=== PATIENT | female | born 1985 | race Caucasian/White ===

== ENCOUNTER 2018-04-04 17:35 | Emergency (ER) | payer OTHER ==
--- NOTE | 2018-04-04 17:44 | UC ---
Respiratory Complaint HPI - HPI Summary HPI Summary: 32 yo female presents with sinus pain/pressure/congestion and dry cough for the last 1 week. She has not taken anything OTC. Denies fever, chills, sore throat, SOB, chest pain, abdominal pain, n/v. She is still smoking daily. - History of Current Complaint Hx Obtained From: Patient Hx Last Menstrual Period: started 03/14/15 Onset/Duration: Gradual Onset Timing: Constant Severity Initially: Mild Severity Currently: Mild Pain Intensity: 5 Pain Scale Used: 0-10 Numeric Character: Cough: Nonproductive <Chema Castro - Last Filed: 04/04/18 17:56> <Wayne Ibrahim - Last Filed: 04/04/18 18:13> - History of Current Complaint Stated Complaint: COUGH Time Seen by Provider: 04/04/18 17:40 - Allergies/Home Medications Allergies/Adverse Reactions: Allergies Allergy/AdvReac Type Severity Reaction Status Date / Time bee stings Allergy Severe Anaphylatic Uncoded 04/04/18 17:46 Shock Home Medications: Home Medications Desvenlafaxine (NF) [Pristiq (NF)] 75 mg PO DAILY 04/04/18 [History Confirmed ] Vit B12/Pyridoxine/Thiamine [Apatate Liquid] 500 mg PO DAILY 04/04/18 [History Confirmed 04/04/18] PMH/Surg Hx/FS Hx/Imm Hx Previously Healthy: Yes Psychological History: Depression - Surgical History Surgical History: None - Family History Known Family History: Positive: Cardiac Disease, Other - cancer Negative: Diabetes - Social History Occupation: Employed Full-time Lives: With Family Alcohol Use: Occasionally Substance Use Type: None Smoking Status (MU): Light Every Day Tobacco Smoker Type: Cigarettes Amount Used/How Often: 2 CIG/DAY <Chema Castro - Last Filed: 04/04/18 17:56> Review of Systems Constitutional: Negative Skin: Negative Eyes: Negative ENT: Ear Ache, Nasal Discharge, Sinus Congestion, Sinus Pain/Tenderness Respiratory: Cough Cardiovascular: Negative Gastrointestinal: Negative Neurovascular: Negative Neurological: Negative Psychological: Negative All Other Systems Reviewed And Are Negative: Yes <Chema Castro - Last Filed: 04/04/18 17:56> Physical Exam - Summary Physical Exam Summary: GENERAL: NAD. WDWN. Appears fatigued SKIN: No rashes, sores, lesions, or open wounds. HEENT: Head: AT/NC Eyes: EOM intact. Conjunctiva clear without inflammation or discharge. Ears: Hearing grossly normal. TMs intact, no bulging, erythema, or edema. Nose: Nasal mucosa mildly swollen and erythematous with yellow/ clear discharge. TTP maxillary and frontal sinus. Throat: Posterior oropharynx without exudates, erythema, or tonsillar enlargement. Uvula midline. NECK: Supple. Nontender. No lymphadenopathy. CHEST: CTAB. No r/r/w. No accessory muscle use. Breathing comfortably and in no distress. CV: RRR. Without m/r/g. Pulses intact. Brisk cap refill. NEURO: Alert. CN II-XII grossly intact. PSYCH: Age appropriate behavior. Triage Information Reviewed: Yes Vital Signs: Vital Signs: Temp Pulse Resp BP Pulse Ox 97.8 F 74 16 117/78 99 04/04/18 17:41 04/04/18 17:41 04/04/18 17:41 04/04/18 17:41 04/04/18 17:41 <Chema Castro - Last Filed: 04/04/18 17:56> Vital Signs: Initial Vital Signs Temp 97.8 F 04/04/18 17:41 Pulse 74 04/04/18 17:41 Resp 16 04/04/18 17:41 BP 117/78 04/04/18 17:41 Pulse Ox 99 04/04/18 17:41 <Wayne Ibrahim - Last Filed: 04/04/18 18:13> Respiratory Course/Dx - Course Course Of Treatment: Sinusitis - Differential Dx/Diagnosis Provider Diagnoses: sinusitis <Chema Castro - Last Filed: 04/04/18 17:56> Discharge - Sign-Out/Discharge Documenting (check all that apply): Discharge/Admit/Transfer - Billing Disposition and Condition Condition: STABLE Disposition: Home <Chema Castro Last Filed: 04/04/18 17:56> - Billing Disposition and Condition Condition: STABLE Disposition: Home <Wayne Ibrahim - Last Filed: 04/04/18 18:13> - Discharge Plan Condition: Stable Disposition: HOME Prescriptions: Amoxicillin PO (*) [Amoxicillin 500 MG CAP*] 500 mg PO Q12H #20 cap Patient Education Materials: Sinusitis (ED) Referrals: Edmundo Rooney MD [Primary Care Provider] - Additional Instructions: If you develop a fever, shortness of breath, chest pain, new or worsening symptoms - please call your PCP or go to the ED. Per institutional requirements, I have reviewed the chart, however, I was not consulted specifically or made aware of this patient by the above midlevel provider. I did not personally evaluate, interact with , or disposition this patient.
[2018-04-04 17:45] VITALS: BP 117/78
== END 2018-04-04 18:07 | disposition home or self-care (01) ==
LOC: UCEAST 17:35
DX: J32.9 Chronic sinusitis, unspecified (principal); F17.210 Nicotine dependence, cigarettes, uncomplicated
CPT/HCPCS: 99212; G0463

== ENCOUNTER 2019-02-21 21:16 | Emergency (ER) | payer OTHER ==
--- OUTSIDE RECORDS SUMMARY | 2019-02-21 21:21 | XMS REPORT | Continuity of Care Document ---
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 Blood Count 4.69 10^6/uL 4.0-5.4 Hemoglobin 14.1 g/dL 12.0-16.0 Hematocrit 41 % 35-47 Mean Corpuscular Volume 87 fL 80-97 Mean Corpuscular Hemoglobin 30 pg 27-31 Mean Corpuscular HGB Conc 35 g/dL 31-36 Red Cell Distribution Width 13 % 10.5-15 Platelet Count 226 10^3/uL 150-450 Mean Platelet Volume 10 um3 7.4-10.4 Abs Neutrophils 3.0 10^3/uL 1.5-7.7 Abs Lymphocytes 1.3 10^3/uL 1.0-4.8 Abs Monocytes 0.5 10^3/uL 0-0.8 Abs Eosinophils 0.1 10^3/uL 0-0.6 Abs Basophils 0 10^3/uL 0-0.2 Abs Nucleated RBC 0 10^3/uL Neutrophil % 66 % 38-83 Lymphocytes % 28 % 25-47 Monocytes % 6 % 0-13 RBC Morphology Normal Normal Laboratory test 12/26/2013 [facility] Blood Culture (SEE NOTE) [address] [place] [address] [phone] CBC Auto Diff 12/25/2013 [facility] White Blood 14.8 High 4.8- [address] Count 10^3/uL .8 [place] [address] [phone] Red Blood Count 5.05 10^6/uL 4.0-5.4 Hemoglobin 14.6 g/dL 12.0-16.0 Hematocrit 44 % 35-47 Mean Corpuscular Volume 87 fL 80-97 Mean Corpuscular Hemoglobin 29 pg 27-31 Mean Corpuscular HGB Conc 33 g/dL 31-36 Red Cell Distribution Width 13 % 10.5-15 Platelet Count 270 10^3/uL 150-450 Mean Platelet Volume 10 um3 7.4-10.4 Abs Neutrophils 13.7 10^3/uL High 1.5-7.7 Abs Lymphocytes 0.5 10^3/uL Low 1.0-4.8 Abs Monocytes 0.5 10^3/uL 0-0.8 Abs Eosinophils 0 10^3/uL 0-0.6 Abs Basophils 0.1 10^3/uL 0-0.2 Abs Nucleated RBC 0.01 10^3/uL Granulocyte % 92.4 % High 38-83 Lymphocyte % 3.6 % Low 25-47 Monocyte % 3.5 % 1-9 Eosinophil % 0 % 0-6 Basophil % 0.5 % 0-2 Nucleated Red Blood Cells % 0 Comp Metabolic Panel 12/25/2013 [facility] Sodium 133 mmol/L 133-[address] [place] [address] [phone] Potassium 4.8 mmol/L 3.7-5.6 Chloride 101 mmol/L 101-111 Co2 Carbon Dioxide 25 mmol/L 22-32 Anion Gap 7 mmol/L 2-11 Glucose 113 mg/dL High 70-100 Blood Urea Nitrogen 17 mg/dL 6-24 Creatinine 0.81 mg/dL 0.51-0.95 BUN/Creatinine Ratio 21.0 High 8-20 Calcium 9.5 mg/dL 8.6-10.3 Total Protein 6.7 g/dL 6.4-8.9 Albumin 4.6 g/dL 3.2-5.2 Globulin 2.1 g/dL 2-4 Albumin/Globulin Ratio 2.2 1-3 Total Bilirubin 0.90 mg/dL 0.2-1.0 Alkaline Phosphatase 51 U/L 34-104 Alt 10 U/L 7-52 Ast 14 U/L 13-39 Egfr Non- 83.6 >60 Egfr 107.5 >60 17 CBC With 02/14/2013 [facility] White Blood 8.9 10^3/uL 4.8- 10.8 Manual Diff [address] [place] [address] [phone] Red Blood Count 4.71 10^6/uL 4.0-5.4 Hemoglobin 13.9 g/dL 12.0-16.0 Hematocrit 42 % 35-47 Mean Corpuscular Volume 90 fL 80-97 Mean Corpuscular Hemoglobin 30 pg 27-31 Mean Corpuscular HGB Conc 33 g/dL 31-36 Red Cell Distribution Width 13 % 10.5-15 Platelet Count 291 10^3/uL 150-450 Platelet Morphology Large Mean Platelet Volume 10 um3 7.4-10.4 Abs Neutrophils 5.5 10^3/uL 1.5-7.7 Abs Lymphocytes 2.7 10^3/uL 1.0-4.8 Abs Monocytes 0.5 10^3/uL 0-0.8 Abs Eosinophils 0.1 10^3/uL 0-0.6 Abs Basophils 0.1 10^3/uL 0-0.2 Abs Nucleated RBC 0 10^3/uL Neutrophil % 49 % 38-83 Band % 2 % 0-8 Lymphocytes % 44 % 25-47 Monocytes % 3 % 0-13 Eosinophils % 1 % 0-6 Reactive Lymph % 1 % 0-6 RBC Morphology Normal Normal Laboratory test 08/19/2012 [facility] C Reactive 20.5 mg/dL High Less Than finding [address] Protein 0.5 [place] [address] [phone] Comp Metabolic 08/19/2012 [facility] Sodium 132 mmol/L Low 133 -[address] [place] [address] [phone] Potassium 2.9 mmol/L Low 3.5-5.0 Chloride 99 mmol/L Low 101-111 Co2 Carbon Dioxide 23.0 mmol/L 22-32 Anion Gap 10.0 mmol/L 2-11 Glucose 101 mg/dL High 70-100 Blood Urea Nitrogen 7 mg/dL 6-24 Creatinine 0.80 mg/dL 0.50-1.40 BUN/Creatinine Ratio 8.8 8-20 Calcium 8.9 mg/dL 8.1-9.9 Total Protein 6.5 GM/DL 6.2-8.1 Albumin 3.5 GM/DL Low 3.6-5.4 Globulin 3.0 GM/DL 2-4 Albumin/Globulin Ratio 1.2 1-3 Total Bilirubin 0.5 mg/dL 0.1-1.0 18 Alkaline Phosphatase 49 U/L 30-110 Alt 21 U/L 14-54 Ast 25 U/L 12-42 Egfr Non- 85.4 >60 Egfr 109.8 >60 19 Urinalysis 08/19/2012 [facility] Urine Color Yellow [address] [place] [address] [phone] Urine Appearance Clear Urine Specific [place] 1.015 1.010-1.030 Urine Esterase Negative Negative Urine Nitrate Negative Negative Urine Urobilinogen Negative Negative Urine Protein Trace Abnormal Negative Urine pH 6.0 5-9 Urine Blood Negative Negative Urine Ketones 2+ Abnormal Negative Urine Bilirubin Negative Negative Urine Glucose Negative Negative CBC Auto Diff 08/19/2012 [facility] White Blood 6.0 10^3/uL 4.8-10.[address] [place] [address] [phone] Red Blood Count 4.76 10^6/uL 4.0-5.4 Hemoglobin 14.1 g/dL 12.0-16.0 Hematocrit 41 % 35-47 Mean Corpuscular Volume 87 fL 80-97 Mean Corpuscular Hemoglobin 30 pg 27-31 Mean Corpuscular HGB Conc 34 g/dL 31-36 Red Cell Distribution Width 13 % 10.5-15 Platelet Count 164 10^3/uL 150-450 Mean Platelet Volume 10 um3 7.4-10.4 Abs Neutrophils 5.0 10^3/uL 1.5-7.7 Abs Lymphocytes 0.7 10^3/uL Low 1.0-4.8 Abs Monocytes 0.4 10^3/uL 0-0.8 Abs Eosinophils 0 10^3/uL 0-0.6 Abs Basophils 0 10^3/uL 0-0.2 Abs Nucleated RBC 0.01 10^3/uL Granulocyte % 81.9 % 38-83 Lymphocyte % 11.5 % Low 25-47 Monocyte % 6.1 % 1-9 Eosinophil % 0.3 % 0-6 Basophil % 0.2 % 0-2 Nucleated Red Blood Cells % 0.1 Comp Metabolic Panel 08/18/2012 [facility] Sodium 134 mmol/L 133-[address] [place] [address] [phone] Potassium 4.4 mmol/L 3.5-5.0 Chloride 100 mmol/L Low 101-111 Co2 Carbon Dioxide 27.0 mmol/L 22-32 Anion Gap 7.0 mmol/L 2-11 Glucose 101 mg/dL High 70-100 Blood Urea Nitrogen 7 mg/dL 6-24 Creatinine 0.70 mg/dL 0.50-1.40 BUN/Creatinine Ratio 10.0 8-20 Calcium 9.2 mg/dL 8.1-9.9 Total Protein 6.6 GM/DL 6.2-8.1 Albumin 3.8 GM/DL 3.6-5.4 Globulin 2.8 GM/DL 2-4 Albumin/Globulin Ratio 1.4 1-3 Total Bilirubin 0.6 mg/dL 0.1-1.0 20 Alkaline Phosphatase 50 U/L 30-110 Alt 18 U/L 14-54 Ast 19 U/L 12-42 Egfr Non- 99.6 >60 Egfr 128.1 >60 21 Laboratory test 08/18/2012 [facility] C Reactive 13.2 mg/dL High Less Than finding [address] Protein 0.5 [place] [address] [phone] CBC Auto Diff 08/18/2012 [facility] White Blood 7.1 4.8-10.8 DRIVE Count 10^3/[place] [address] [phone] Red Blood Count 4.62 10^6/uL 4.0-5.4 Hemoglobin 13.8 g/dL 12.0-16.0 Hematocrit 41 % 35-47 Mean Corpuscular Volume 88 fL 80-97 Mean Corpuscular Hemoglobin 30 pg 27-31 Mean Corpuscular HGB Conc 34 g/dL 31-36 Red Cell Distribution Width 12 % 10.5-15 Platelet Count 182 10^3/uL 150-450 Mean Platelet Volume 11 um3 High 7.4-10.4 Abs Neutrophils 5.8 10^3/uL 1.5-7.7 Abs Lymphocytes 0.9 10^3/uL Low 1.0-4.8 Abs Monocytes 0.4 10^3/uL 0-0.8 Abs Eosinophils 0 10^3/uL 0-0.6 Abs Basophils 0.1 10^3/uL 0-0.2 Abs Nucleated RBC 0 10^3/uL Granulocyte % 80.6 % 38-83 Lymphocyte % 12.1 % Low 25-47 Monocyte % 5.9 % 1-9 Eosinophil % 0.1 % 0-6 Basophil % 1.3 % 0-2 Nucleated Red Blood Cells % 0.1 Laboratory test 04/12/2012 [facility] Glucose 65 mg/dL Low 70- 100 finding [address] [place] [address] [phone] Lipid Profile 04/12/2012 [facility] Triglyceride 80 mg/dL 40- 200 (Trig/Chol/HDL) [address] [place] [address] [phone] Cholesterol 147 mg/dL Less Than 200 22 High Density Lipoprotein 38 mg/dL Low 40-60 23 Low Density Lipoprotein 93 mg/dL Less Than 100 24 Cholesterol/HDL Ratio 3.87 AVERAGE 1-4.44 Laboratory test 12/23/2011 [facility] Rapid < SEE [address] [facility] Strep A NOTE> [place] [address] [phone] 1 SEE RESULT BELOW Name: FREDY QUINTEROSTERA Skelton : [address]: Leana Nichols MD Acct: [id number] Unit: [id number] AGE: 33 Location: [facility] Re06/14/18 SEX: F Status: REG REF SPEC: [id number] CEDRIC: 06/14/18-1146 [facility] DR: Leana Nichols MD REQ: [id number] RECD: 06/14/18 STATUS: COMP _ SOURCE: VAGINAL SPDESC: ORDERED: Cheryl,Yeast DNA COMMENTS: [id number] Would you like to order Trichomonas Vaginalis testing? Y Procedure Result Reported Site Gardnerella/Yeast: Vaginal DNA Final 06/15/18- 1347 ML Organism 1 POSITIVE GARDNERELLA Organism 2 Negative Naya The presence of G. vaginalis, although suggestive, is not diagnostic for bacterial vaginosis. Results should be interpreted in conjuction with other clinical and laboratory data available. Women with vaginal discharge should be evaluated for risk factors of cervicitis and pelvic inflammatory disease, toxic shock syndrome (S.aureus), and if present, evaluated for organisms not included in this assay such as N. gonorrhoeae, C. trachomatis, Mobiluncus, Mycoplasma and/or Prevotella. Mixed infections may occur. The performance of this test on patient specimens collected during or immediately after antimicrobial therapy is unknown. The presence or absence of Naya species, or G. vaginalis cannot be used as a test for therapeutic success or failure. * ML - Main Lab . END OF REPORT DEPARTMENT OF PATHOLOGY, [address] [place] [address] Frederick Schaefer M.D. Director [facility] # [id number] 2 [id number] GC/Chlamydia Source?: Endocervical Trichomonas Source: Endocervical 3 Desirable: <150 Borderline High: 150-199 High: 200-499 Very High: >500 4 Desirable: <200 Borderline High: 200-239 High: >239 5 Low: <40 Desirable: 40-60 High: >60 6 Desirable: <100 Near Optimal: 100-129 Borderline High: 130-159 High: 160-189 Very High: >189 7 It is recognized that currently available assays for the detection of antibodies to HIV-1 and/or HIV-2 may not detect all infected individuals. HIV antibodies may be undetectable in some stages of the infection and in some clinical conditions. The performance of this assay has not been established for populations of infants or children. Assayed by Chemiluminescence Microparticle Immunoassay on the Siemens Advia Centaur CP. Values obtained with different methods or kits cannot be used interchangeably.The diagnostic specificity of the ADVIA Centaur 1/O/2 Enhanced assay in the low risk population was 99.90% (6052/6058) with a 95% confidence interval of 99.78 to 99.96%. 8 Normal Range 180 to 914 Indeterminate Range 145 to 180 Deficient Range <145 9 Because ethnic data is not always readily available, this report includes an eGFR for both -Americans and non- Americans. The National Kidney Disease Education Program (NKDEP) does not endorse the use of the MDRD equation for patients that are not between the ages of 18 and 70, are , have extremes of body size, muscle mass, or nutritional status, or are non- or non-. According to the National Kidney Foundation, irrespective of diagnosis, the stage of the disease is based on the level of kidney function: Stage Description GFR(mL/min/1.73 m(2)) 1 Kidney damage with normal or decreased GFR 90 2 Kidney damage with mild decrease in GFR 60-89 3 Moderate decrease in GFR 30-59 4 Severe decrease in GFR 15-29 5 Kidney failure <15 (or dialysis) 10 Acute inflammation: >10.00 11 Because ethnic data is not always readily available, this report includes an eGFR for both -Americans and non- Americans. The National Kidney Disease Education Program (NKDEP) does not endorse the use of the MDRD equation for patients that are not between the ages of 18 and 70, are , have extremes of body size, muscle mass, or nutritional status, or are non- or non-. According to the National Kidney Foundation, irrespective of diagnosis, the stage of the disease is based on the level of kidney function: Stage Description GFR(mL/min/1.73 m(2)) 1 Kidney damage with normal or decreased GFR 90 2 Kidney damage with mild decrease in GFR 60-89 3 Moderate decrease in GFR 30-59 4 Severe decrease in GFR 15-29 5 Kidney failure <15 (or dialysis) 12 SEE RESULT BELOW Name: JAZZ QUINTEROS : [address]: Den Rooney MD Acct: [id number] Unit: [id number] AGE: 31 Location: LAB Re07/01/16 SEX: F Status: REG REF SPEC: [id number] CEDRIC: 07/01/[address]: Edmundo Rooney MD REQ: [id number] RECD: 07/01/16 STATUS: COMP _ SOURCE: STOOL SPDESC: ORDERED: CAnders denson PCR, Stool Culture, Fecal Lactoferr, Giardia Antigen Procedure Result Reported Site Stool Culture Final 07/03/16- 1249 ML Organism 1 CAMPYLOBACTER JEJUNI Result No additional pathogens isolated Testing for Salmonella, Shigella, Aeromonas, Plesiomonas, Yersinia and Campylobacter are included in a Stool Culture. Vibrio spp not routinely tested for in a stool culture. If testing is desired, please request specifically when placing test order. Sensitivities not routinely performed on stool isolates, as antibiotics may prolong the carriage rate of bacteria. Please contact the microbiology lab if sensitivities are required. Stool Specimen Description Final 07/02/16- 0857 ML Stool Color Brown Stool Form Nonformed Stool Consistency Liquid Shiga Toxin 1 2 Final 07/02/16- 1243 ML Organism 1 Negative Shiga Toxin 1 2 CONTINUED ON NEXT PAGE * ML=Testing performed at [facility] Lab DEPARTMENT OF PATHOLOGY, [address] [place] [address] Frederick Schaefer M.D. Director [facility] # [id number] Patient: JAZZ QUINTEROS [id number] (Continued) Specimen: [id number] Collected: 07/01/16 Received: 07/01/16-1056 (Continued) Procedure Result Reported Site Shiga Toxin 1 2 Final (continued) 07/02/16- 1243 Immunochromatographic Assay C. difficile PCR Final 07/01/16- 1150 ML Organism 1 027 Presumptive NEGATIVE Organism 2 Toxigenic C.diff NEGATIVE Fecal Lactoferrin (Stool WBC) Final 07/01/16- 1135 ML Fecal Lactoferrin Positive by Immunoassay TEST LIMITATIONS: Assay detects elevated levels of lactoferrin released from fecal leukocytes as a marker of intestinal inflammation. The test may not be appropriate in immunocompromised persons. Fecal samples from breast fed infants should not be used with this assay. Giardia Antigen Screen Final 07/01/16- 1143 ML Organism 1 Negative Giardia Giardia antigen testing performed by enzyme immunoassay. If patient is immunocompromised or has traveled to or is from a developing country, a full ova and parasite exam with microscopic (OPMIC) is recommended. All samples will be held one month in case full ova and parasite testing is requested. Contact the Microbiology Department at [phone]. * ML - MAIN LAB ([facility]) . END OF REPORT * ML=Testing performed at Main Lab DEPARTMENT OF PATHOLOGY, [address] [place] [address] Frederick Schaefer M.D. Director [facility] # [id number] 13 SEE RESULT BELOW Name: JAZZ QUINTEROS : [address]: Den Rooney MD Acct: [id number] Unit: [id number] AGE: 31 Location: LAB Re07/01/16 SEX: F Status: REG REF SPEC: [id number] CEDRIC: 07/01/[address]: Edmundo Rooney MD REQ: [id number] RECD: 07/01/16 STATUS: RES _ SOURCE: STOOL SPDESC: ORDERED: Leola denson PCR, Stool Culture, Fecal Lactoferr, Giardia Antigen Procedure Result Reported Site Stool Culture PENDING Stool Specimen Description PENDING Shiga Toxin 1 2 PENDING C. difficile PCR PENDING Fecal Lactoferrin (Stool WBC) Final 07/01/16- 1135 ML Fecal Lactoferrin Positive by Immunoassay TEST LIMITATIONS: Assay detects elevated levels of lactoferrin released from fecal leukocytes as a marker of intestinal inflammation. The test may not be appropriate in immunocompromised persons. Fecal samples from breast fed infants should not be used with this assay. Giardia Antigen Screen Final 07/01/16- 1143 ML Organism 1 Negative Giardia CONTINUED ON NEXT PAGE * ML=Testing performed at Main Lab DEPARTMENT OF PATHOLOGY, [address] [place] [address] Frederick Schaefer M.D. Director [facility] # [id number] Patient: JAZZ QUINTEROS [id number] (Continued) Specimen: [id number] Collected: 07/01/16 Received: 07/01/16 (Continued) Procedure Result Reported Site Giardia Antigen Screen Final (continued) 07/01/16- 1143 Giardia antigen testing performed by enzyme immunoassay. If patient is immunocompromised or has traveled to or is from a developing country, a full ova and parasite exam with microscopic (OPMIC) is recommended. All samples will be held one month in case full ova and parasite testing is requested. Contact the Microbiology Department at [phone]. * ML - MAIN LAB ([facility]) . END OF REPORT * ML=Testing performed at Main Lab DEPARTMENT OF PATHOLOGY, [address] [place] [address] Frederick Schaefer M.D. Director [facility] # [id number] 14 SEE RESULT BELOW Name: JAZZ QUINTEROS : [address]: Raman Walden III, MD Acct: [id number] Unit: [id number] AGE: 30 Location: [facility] Re01/29/16 SEX: F Status: REG REF SPEC: [id number] CEDRIC: 01/29/16-1753 [facility] DR: Raman Walden III, MD REQ: [id number] RECD: 01/30/16114 STATUS: COMP _ SOURCE: THROAT SPDESC: ORDERED: Throat Culture Procedure Result Reported Site Throat Culture Final 02/01/16- 1021 ML Organism 1 NORMAL LUPE Quantity 3+ * ML - MAIN LAB ([facility]) . END OF REPORT * ML=Testing performed at Main Lab DEPARTMENT OF PATHOLOGY, [address] [place] [address] Frederick Schaefer M.D. Director [facility] # [id number] 15 RUN DATE: 03/14/14 [facility] LAB LIVE PAGE 1 RUN TIME: [address] [place] [address] Specimen Inquiry Name: JAZZ QUINTEROS : [address]: Azra Boyer MD Acct: [id number] Unit: [id number] AGE: 28 Location: [facility] Re03/11/14 SEX: F Status: DEP ER SPEC: [id number] CEDRIC: 03/11/14-2099 [facility] [address]: Azra Boyer MD REQ: [id number] RECD: 03/12/14123 STATUS: ARNOLDO ALVARENGA DR: [facility] Edmundo Rooney MD _ SOURCE: URINE SPDESC: ORDERED: Urine Culture Procedure Result Verified Site Urine Culture Final 03/14/14- 0903 ML Organism 1 ESCHERICHIA COLI [place] Count >100,000 (Many) CFU/ML 1. ESCHERICHIA COLI M.I.C. RX --------- ------ Ampicillin >=32 R Cefazolin <=4 S Cefepime <=1 S Ceftriaxone <=1 S Ciprofloxacin <=0.25 S Gentamicin <=1 S Levofloxacin 1 S Meropenem <=0.25 S Nitrofurantoin 32 S Tetracycline >=16 R Pipercillin/Tazobactam <=4 S Trimethoprim/Sulfamethoxazole >=320 R Amoxicillin/Clavulanic Acid 8 S Aztreonam <=1 S Contact the Microbiology Department for any additional antibiotic reporting. END OF REPORT * ML=Testing performed at Main Lab DEPARTMENT OF PATHOLOGY, [facility] [employer] [place], [place] [address] Frederick Schaefer M.D. Director [facility] # [id number] 16 RUN DATE: 12/31/13 [facility] LAB LIVE PAGE 1 RUN TIME: 1012 [facility] [employer] [place], [place] [address] Specimen Inquiry Name: JAZZ QUINTEROS : [address]: Den Rooney MD Acct: [id number] Unit: [id number] AGE: 28 Location: [facility] Re12/26/13 SEX: F Status: REG REF SPEC: [id number] CEDRIC: 12/26/[address]: Edmundo Rooney MD REQ: [id number] RECD: 12/26/13 STATUS: COMP _ SOURCE: BLOOD,VENO SPDESC: ORDERED: Blood Cult QUERIES: Med[facility] Number [id number] Procedure Result Verified Site Aerobic Culture Bottle Final 12/31/13- 1012 ML No Growth Day 5 Anaerobic Culture Bottle Final 12/31/13- 1012 ML No Growth Day 5 END OF REPORT * ML=Testing performed at Main Lab DEPARTMENT OF PATHOLOGY, [address] [place] [address] Frederick Schaefer M.D. Director [facility] Permit #[id number] 17 Because ethnic data is not always readily available, this report includes an eGFR for both -Americans and non- Americans. The National Kidney Disease Education Program (NKDEP) does not endorse the use of the MDRD equation for patients that are not between the ages of 18 and 70, are , have extremes of body size, muscle mass, or nutritional status, or are non- or non-. According to the National Kidney Foundation, irrespective of diagnosis, the stage of the disease is based on the level of kidney function: Stage Description GFR(mL/min/1.73 m(2)) 1 Kidney damage with normal or decreased GFR 90 2 Kidney damage with mild decrease in GFR 60-89 3 Moderate decrease in GFR 30-59 4 Severe decrease in GFR 15-29 5 Kidney failure <15 (or dialysis) 18 A metabolite of Naproxen, O-desmethylnaproxen, has been shown to interfere with the [place] method for measuring total bilirubin. Samples from patients who have taken Naproxen have shown spurious elevation in total bilirubin levels. 19 Because ethnic data is not always readily available, this report includes an eGFR for both -Americans and non- Americans. The National Kidney Disease Education Program (NKDEP) does not endorse the use of the MDRD equation for patients that are not between the ages of 18 and 70, are , have extremes of body size, muscle mass, or nutritional status, or are non- or non-. According to the National Kidney Foundation, irrespective of diagnosis, the stage of the disease is based on the level of kidney function: Stage Description GFR(mL/min/1.73 m(2)) 1 Kidney damage with normal or decreased GFR 90 2 Kidney damage with mild decrease in GFR 60-89 3 Moderate decrease in GFR 30-59 4 Severe decrease in GFR 15-29 5 Kidney failure <15 (or dialysis) 20 A metabolite of Naproxen, O-desmethylnaproxen, has been shown to interfere with the [place] method for measuring total bilirubin. Samples from patients who have taken Naproxen have shown spurious elevation in total bilirubin levels. 21 Because ethnic data is not always readily available, this report includes an eGFR for both -Americans and non- Americans. The National Kidney Disease Education Program (NKDEP) does not endorse the use of the MDRD equation for patients that are not between the ages of 18 and 70, are , have extremes of body size, muscle mass, or nutritional status, or are non- or non-. According to the National Kidney Foundation, irrespective of diagnosis, the stage of the disease is based on the level of kidney function: Stage Description GFR(mL/min/1.73 m(2)) 1 Kidney damage with normal or decreased GFR 90 2 Kidney damage with mild decrease in GFR 60-89 3 Moderate decrease in GFR 30-59 4 Severe decrease in GFR 15-29 5 Kidney failure <15 (or dialysis) 22 CHOLESTEROL INTERPRETATION: Desirable: Less than 200 MG/DL Borderline-High Risk: 200-239 MG/DL High-Risk: 240 MG/DL and over 23 HDL INTERPRETATION: Undesirable: High Risk: Less than 40 MG/DL Desirable: Low Risk: Greater than 60 MG/DL 24 LDL INTERPRETATION: Low Risk Optimal Level: LDL Less than 100 MG/DL Near or Above Optimal: LDL 100-129 MG/DL Borderline High Risk: LDL 130-159 MG/DL High Risk: LDL 160-189 MG/DL Very High Risk: LDL Greater than 189 MG/DL 25 RUN DATE: 12/25/11 [facility] NMI LIVE PAGE 1 RUN TIME: 1036 Specimen Inquiry RUN USER: INTERFACE Name: JAZZ QUINTEROS Costa Status: REG REF Re12/23/11 Age/Sex: 26/F Unit#: [id number] Location: [facility]. : [birth year] SPEC #: [id number] CEDRIC: 12/23/11 STATUS: ARNOLDO REQ #: [id number] RECD: 12/24/[address] [facility] [address]: Molly BEGUM,Jordyn Galvez SOURCE: THROAT ENTR: 12/24/11-[address]: BARBARAC: ORDERED: RAPID STREP A, THROAT CULTURE QUERIES: [facility] REQUISITION # [id number] ACT WKST: B 12/25/11 #1 Procedure Result Verified Site > RAPID STREP A Final 12/24/11- 1105 ML RAPID STREP NEGATIVE FOR GROUP A STREP BY ENZYME IMMUNOASSAY The furnace liner and regulatory agencies both recommend that a throat culture for beta strep be performed if a Rapid Group A Strep assay yields a negative result. Therefore a culture will be automatically performed on all negative samples. > THROAT CULTURE FULL Final 12/25/11- 1036 ML NORMAL THROAT LUPE FULL THROAT CULTURES ARE CLINICALLY INDICATED TO DETECT THE PRESENCE OF GROUP A STREP, ARCANOBACTERIUM AND YEAST. - [facility] Permit #[id number] [address] [place] [address] DEPARTMENT OF PATHOLOGY, [address] [place] [address] [facility] Permit #[id number] Frederick Schaefer M.D. Director Nicole Jordan M.D. Casing Flusher Procedures Date Code Description Status 12/16/2018 [id number] Colonoscopy Completed 11/20/2013 [id number] Colonoscopy Completed Encounters Type Date Location Provider Dx Diagnosis Office Visit 11/09/2018 [facility] Internal Hilda Gibbs MD J06.9 Acute upper 10:00a Medicine - respiratory [place] infection, unspecified Office Visit 09/01/2018 Orthopedic Shan Hernandes, M20.12 Hallux valgus 9:30a Services Of Dariel Wagner (acquired), left foot Office Visit 08/23/2018 [facility] Leana Nichols, N76.1 Subacute and 10:00a [facility] chronic vaginitis Office Visit 06/14/2018 [facility], Z01.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 10: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 [facility] exam (general) (routine) w/o abn findings N76.0 Acute vaginitis R10.2 Pelvic and perineal pain Office Visit 01/21/2018 11:30a [facility] Carmelina Torres 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.,FACP other mental Rd disorder D51.9 Vitamin B12 deficiency anemia, unspecified Office Visit 12/02/2017 9:00a [facility] Carmelina Torres Z00.00 Encntr for Naveen Rooney M.D.,FACP general adult Rd medical exam w/o abnormal findings N72 Inflammatory disease of cervix uteri 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 M54.5 Low back pain Naveen Rooney M.D.,FACP [place] Office Visit 10/09/2016 10:00a [facility] Internal Edmundo Torres R10.2 Pelvic and Medicine - Manuel Rooney M.D.,FACP perineal pain Rd R20.8 Other disturbances of skin sensation R15.9 Full incontinence of feces Office Visit 09/29/2016 8:50a [facility] Internal Edmundo Torres R10.2 Pelvic and Naveen Rooney M.D.,FACP perineal pain [place] Office Visit 08/26/2016 1:00p [facility] Internal Anjana Kelly, R20.8 Other disturbances Medicine - N.P. of skin sensation [place] R15.9 Full incontinence of feces M25.512 Pain in left shoulder R10.2 Pelvic and perineal pain Office Visit 07/14/2016 2:00p [facility] Internal Edmundo Torres M25.512 Pain in left Naveen Rooney M.D.,FACP shoulder [place] R10.2 Pelvic and perineal pain Office Visit 06/30/2016 [facility] Internal Edmundo Torres A09 Infectious 4:00p Naveen Rooney M.D.,FACP gastroenteritis and [place] colitis, unspecified Office Visit 03/24/2016 [facility] Internal Anjana Kelly, J20.9 Acute bronchitis , 9:20a Medicine - N.P. unspecified [place] Office Visit 09/02/2015 [facility] Internal Inocencio Hoffmann NP J06.9 Acute upper 10:30a Medicine - respiratory [place] infection, unspecified Office Visit 04/04/2015 [facility] Internal José Bragg, 465.9 URI Upper 10:20a Naveen Whiteside M.D. Respiratory [address] Infections Acute Unspec Sites Office Visit 06/11/2014 [facility] Internal Anjana Kelly, 616.10 Vaginitis & 2:20p Medicine - N.P. 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 311 Depressive Disorder 4:40p Medicine - [place], M.D.,FACP Not Elsewhere Spec [place] V16.0 History Family Malignant Neoplasm Gastrointestinal Tract Office Visit 09/07/2013 4:00p [facility] Internal Edmundo Torres 466.0 Bronchitis Acute Naveen Rooney M.D.,FACP [place] Office Visit 03/28/2013 4:00p [facility] Internal Jordyn Barnes, 910.0 Injury Medicine - N.P. Superficial [place] Abrasion Face Neck & Scalp W/O Infection 802.0 FX Nasal Bones Closed Office Visit 03/24/2013 3:20p [facility] Internal Edmundo Torres 300.02 Anxiety Disorder Naveen Rooney M.D.,FACP Generalized [place] 910.0 Injury Superficial Abrasion Face Neck & Scalp W/O Infection 802.0 FX Nasal Bones Closed Office Visit 02/14/2013 3:30p [facility] Carmelina Barnes, 780.79 Malaise And Medicine - N.P. Fatigue Other [place] 780.4 Dizziness & Giddiness 305.1 Tobacco Use Disorder Office Visit 11/23/2012 10:10a [facility] Carmelina Torres 300.02 Anxiety Disorder Naveen Rooney M.D.,FACP Generalized [place] 305.1 Tobacco Use Disorder Office Visit 10/24/2012 [facility] Carmelina Torres 300.02 Anxiety Disorder 11:30a Naveen Rooney M.D.,FACP Generalized [place] Office Visit 08/18/2012 [facility] Carmelina Torres 487.1 Influenza W/ Other 9:50a Naveen Rooney M.D.,FACP Respiratory [place] Manifestations Office Visit 08/12/2012 [facility] Carmelina Torres 691.8 Dermatitis Atopic & 10:40a Naveen Rooney M.D.,FACP Related Conditions [place] Other v04.81 Need For Prophylactic Vaccination & Inoculation/Influenza Office 04/12/2012 Nadia Cobb V06.1 Ntfjsnzvvh-Exvggcg-Vuzuwtnb Visit 11:30a Naveen Barnes Combined (DTaP) [place] N.P. V77.1 Screening Diabetes Mellitus V77.91 Screening For Lipoid Disorders 465.9 URI Upper Respiratory Infections Acute Unspec Sites Office Visit 03/25/2012 2:45p Nadia Patelll, 381.81 Eustachian Tube Medicine - N.P. Dysfunction [place] V65.49 Counseling Other Spec Office Visit 01/04/2012 [facility] Internal Edmundo Torres 690.18 Seborrheic 9:30a Naveen Rooney M.D.,FACP Dermatitis Other [place] Office Visit 12/22/2011 [facility] Internal Jordyn Barnes, 462 Pharyngitis Acute 4:30p Medicine - N.P. [place] Office Visit 07/30/2011 DO Not Use Cordwainer Edmundo Torres 466.0 Bronchitis Acute 9:50a AT Nicolás Rooney M.D.,FACP Office Visit 01/15/2010 DO Not Use Cordwainer Payton Horan,P 461.8 Sinusitis Acute 3:00p AT [facility] Marlon Other Office Visit 01/08/2010 DO Not Use Cordwainer Emma, 465.9 URI Upper 1:00p AT Nicolás López M.D. Respiratory Infections Acute Unspec Sites Office Visit 01/06/2010 DO Not Use Cordwainer Emma, 372.00 Conjunctivitis Acute 11:00a AT Nicolás López M.D. Unspec Office Visit 07/17/2009 DO Not Use Cordwainer Emma, 466.0 Bronchitis Acute 11:20a AT Nicolás López M.D. Office Visit 04/25/2009 DO Not Use Cordwainer Edmundo Torres 989.5 Toxic Effect Of 3:40p AT Nicolás Rooney M.D.,[facility] [place] Office Visit 10/17/2008 DO Not Use Nadia Torres 529.9 Tongue Unspec 11:40a AT Nicolás Rooney M.D.,FACP Condition Office Visit 06/19/2008 DO Not Use Cordwainer Payton Horan,P 599.0 UTI Urinary Tract 10:30a AT [facility] A Infection Site Not Spec Plan of Treatment 01/23/2019 - Hilda Gibbs MDZ00.00 Encounter for general adult medical examination without abnoComments:VACCINES:Flu shot every year in the fall.Tetanus: last one done in 2012Pap smear: last one done 5007F79.1 Major depressive disorder, recurrent, moderateComments:Pristiq was zglqiwqsO73.00 Insomnia, unspecifiedComments:Try melatonin along with trazodone. Try to take the whole tablet of trazodone
[2019-02-21 21:27] VITALS: BP 106/70
--- NOTE | 2019-02-21 21:32 | UC ---
Skin Complaint HPI - HPI Summary HPI Summary: 33 yo female presents with facial injury. She tells me that last night she was walking into her home from the garage and went to avoid a piece of new gym equipment her got - she tripped and fell. Her left face impacted the concrete ground. She got to her feet and went inside to clean the area. Today has a bruise and abrasion to her left cheek and some redness in her left eye. She has iced the area and taken ibuprofen for discomfort with great relief. No LOC. Currently she denies headache, dizziness, vision changes, n/v, or eye pain. Only hurts to touch the area - History of Current Complaint Chief Complaint: UCHeadInjury Time Seen by Provider: 02/21/19 21:32 Stated Complaint: FACIAL INJURY Hx Obtained From: Patient Hx Last Menstrual Period: 2 weeks Onset/Duration: Sudden Onset Onset Severity: Moderate Current Severity: Moderate Pain Intensity: 7 Pain Scale Used: 0-10 Numeric - Allergy/Home Medications Allergies/Adverse Reactions: Allergies Allergy/AdvReac Type Severity Reaction Status Date / Time adhesive Allergy contact Verified 02/21/19 21:27 dermatitis bee stings Allergy Severe Anaphylatic Uncoded 02/21/19 21:27 Shock PMH/Surg Hx/FS Hx/Imm Hx Psychological History: Anxiety - Surgical History Surgical History: None - Family History Known Family History: Positive: Cardiac Disease, Other - cancer Negative: Diabetes - Social History Occupation: Employed Full-time Lives: With Family Alcohol Use: Occasionally Substance Use Type: None Smoking Status (MU): Light Every Day Tobacco Smoker Type: Cigarettes Amount Used/How Often: 2 CIG/DAY Length of Time of Smoking/Using Tobacco: QUIT SMOKING IN NOVEMBER 2013 Household Exposure Type: Cigarettes Review of Systems All Other Systems Reviewed And Are Negative: Yes Constitutional: Positive: Negative Skin: Positive: Bruising - Left face, Other - Abrasion left face Eyes: Positive: Eye Redness - left eye Respiratory: Positive: Negative Cardiovascular: Positive: Negative Neurovascular: Positive: Negative Musculoskeletal: Positive: Negative Neurological: Positive: Negative Psychological: Positive: Negative Physical Exam - Summary Physical Exam Summary: GENERAL: NAD. WDWN. No pain distress. SKIN: LEFT inferior orbit with moderate edema and superficial abrasion and ecchymosis. TTP. No drainage, streaking, or bleeding. HEENT: Head: See skin Eyes: EOM intact. PERRLA. LEFT eye with lateral subconjunctival hemorrhage. Ears: Hearing grossly normal. Nose: Nasal mucosa pink and moist. NTTP maxillary and frontal sinus. NECK: Supple. Nontender. FROM CHEST: CTAB. No r/r/w. No accessory muscle use. Breathing comfortably and in no distress. CV: RRR. Without m/r/g. Pulses intact. Cap refill <2seconds NEURO: Alert. PSYCH: Age appropriate behavior. Triage Information Reviewed: Yes Vital Signs: Initial Vital Signs Temp 98 F 02/21/19 21:21 Pulse 99 02/21/19 21:21 Resp 16 02/21/19 21:21 BP 106/70 02/21/19 21:21 Pulse Ox 98 02/21/19 21:21 Vital Signs Reviewed: Yes Course/Dx - Course Course Of Treatment: XR orbits: No radiologist reading after 1800, therefore wet read by myself is negative for fracture. tdap was updated today. Will start pt on keflex for infection. Advised to continue ibuprofen and ice to the area and f/u if symptoms do not improve. - Diagnoses Provider Diagnosis: Facial injury, Bruise of face Discharge - Sign-Out/Discharge Documenting (check all that apply): Patient Departure All imaging exams completed and their final reports reviewed: No - Discharge Plan Condition: Stable Disposition: HOME Prescriptions: Cephalexin CAP* [Keflex CAP*] 500 mg PO BID #14 cap Patient Education Materials: Abrasion (ED), Hematoma (ED) Referrals: Hilda Gibbs MD [Primary Care Provider] - Additional Instructions: If you develop a fever, shortness of breath, chest pain, new or worsening symptoms - please call your PCP or go to the ED. 1) Continue to apply ice to your face and taking ibuprofen as directed to decrease pain and swelling 2) Take the antibiotic to prevent infection - Billing Disposition and Condition Condition: STABLE Disposition: Home - Attestation Statements Provider Attestation: Pt not seen or evaluated by me. I did not disposition this patient.
[2019-02-21] MEDS ORDERED: Cephalexin CAP* 500 MG PO ONE (21:38)
[2019-02-21] MEDS ORDERED: Ibuprofen TAB* 600 MG PO ONE (21:38)
[2019-02-21] MEDS ORDERED: Tetan/Diph/Pertus SYR(Tdap)* 0.5 ML SYR(BOOSTRIX) use SYR IM ONE (21:39)
--- NOTE | 2019-02-22 11:32 | UC ---
- Progress Note Progress Note: RADIOLOGY REPORT REVIEWED. NO ACUTE OSSEOUS INJURY. NO CHANGE IN MGMT. Course/Dx - Diagnoses Provider Diagnoses: Facial injury, Bruise of face Discharge - Sign-Out/Discharge Documenting (check all that apply): Post-Discharge Follow Up All imaging exams completed and their final reports reviewed: Yes - Discharge Plan Condition: Stable Disposition: HOME Prescriptions: Cephalexin CAP* [Keflex CAP*] 500 mg PO BID #14 cap Patient Education Materials: Abrasion (ED), Hematoma (ED) Referrals: Hilda Gibbs MD [Primary Care Provider] - Additional Instructions: If you develop a fever, shortness of breath, chest pain, new or worsening symptoms - please call your PCP or go to the ED. 1) Continue to apply ice to your face and taking ibuprofen as directed to decrease pain and swelling 2) Take the antibiotic to prevent infection - Billing Disposition and Condition Condition: STABLE Disposition: Home
== END 2019-02-21 22:15 | disposition home or self-care (01) ==
LOC: UCEAST 21:16
DX: S00.83XA Contusion of other part of head, initial encounter (principal); H57.89 Other specified disorders of eye and adnexa; W18.09XA Striking against other object with subsequent fall, initial encounter; Y92.015 Private garage of single-family (private) house as the place of occurrence of the external cause; Z23 Encounter for immunization; F41.9 Anxiety disorder, unspecified; Z91.030 Bee allergy status; Z91.048 Other nonmedicinal substance allergy status; Z87.891 Personal history of nicotine dependence
CPT/HCPCS: 70200; 90471; 90715; 99212; A9270-GY; G0463